=== PATIENT | male | born 1970 | race Caucasian/White ===

== ENCOUNTER 2023-06-15 04:53 | Emergency (ER) | payer BC, SELFPAY ==
[2023-06-15 04:55] VITALS: BP 140/94; PULSE 97; RESP 20; TEMP 36.9; O2SAT 94; BMI 37.4
--- NOTE | 2023-06-15 05:32 | PC.NURSE ---
in room talking with patient.
--- NOTE | 2023-06-15 05:38 | CT_ITS ---
PROCEDURE INFORMATION: Exam: CT Maxillofacial With Contrast Exam date and time: 06/15/2023 6:25 AM Age: 53 years old Clinical indication: Maxilla pain; Additional info: Maxillary denture pain into sinus w gum fluctuance TECHNIQUE: Imaging protocol: Computed tomography of the face with contrast. Radiation optimization: All CT scans at this facility use at least one of these dose optimization techniques: automated exposure control; mA and/or kV adjustment per patient size (includes targeted exams where dose is matched to clinical indication); or iterative reconstruction. Contrast material: ISOVUE; Contrast volume: 100 ml; Contrast route: IV; REPORTING DATA: Count of CT and Cardiac NM exams in prior 12 months: This patient has received 0 known CTs and 0 known cardiac nuclear medicine studies in the 12 months prior to the current study. COMPARISON: No relevant prior studies available. FINDINGS: Orbital cavities: Orbits are normal. Globes are unremarkable. Bones/joints: There is no evidence for acute facial fracture. The patient is edentulous. There is a 10 x 14 x 9 mm cystic or erosive structure in the midline maxilla anteriorly at the level of the foramen cecum which is indeterminate. Paranasal sinuses: Normal. No air-fluid levels. Soft tissues: Unremarkable. IMPRESSION: Cystic or erosive structure in the anterior maxilla. There is otherwise no drainable fluid collection.
--- NOTE | 2023-06-15 05:45 | HMH.EDGENADL ---
Discharge Plan Disposition Patient Disposition: Home, Self-Care Condition: Good Prescriptions Prescriptions: New oxycodone 5 mg tablet 5 mg PO Q6H PRN (Reason: severe pain (scale score 7-10)) Qty: 10 0RF amoxicillin-pot clavulanate 875-125 mg tablet 1 tab PO BID Qty: 14 0RF Referrals Follow up/Referrals: Prabhakar Peña [Primary Care Provider] - See instructions Activity Restrictions/Add. Instructions Additional Instructions/Restrictions: You were evaluated in the emergency department today for dental pain. I did not identify any obvious drainable abscess, however I am concerned for possible infection. You are being prescribed Augmentin as well as oxycodone as needed for severe pain. Only take the oxycodone if Tylenol and ibuprofen are not controlling your pain. Please call your dentist to be evaluated for denture refitting. Also follow-up with your primary care physician in 2 to 3 days for reevaluation. Return to the emergency department with new or worsening symptoms. Clinical Impressions Clinical Impression: Pain, dental Discharge ED Provider: Alfa Cunningham General Adult HPI General Chief complaint: Dental/Oral Stated complaint: Roof of mouth swollen Time Seen by Provider: 06/15/23 05:32 Mode of Arrival: Ambulatory Source of Information: Patient Limitations: No Limitations Description of Symptoms (Recalled from ER Triage Doc. by RN): Pt presents with oral pain that started 3 days ago. Pt has dentures he has had for 1 yr and unable to tolorate them on his gums. Pt rates pain 10/10. Unable to eat due to pain. Upper pallette is red and swollen as well as gum line. History of Present Illness HPI narrative: This 53-year-old male presents to the emergency department with concerns of oral pain. Patient states he has had dentures for more than a year and has never had issues with them until the last 3 days. He has significant pain where his 2 upper front teeth would normally be with redness and tenderness. He states this pain is now radiating up behind his nose and into his sinuses. He is also having right ear pain. Patient states he has had episodes of feeling hot and chilled. Pain was so significant that he came home from work with it. He has been unable to tolerate oral intake secondary to pain. Patient has had occasional nausea with one episode of emesis today. Related Data Previous Rx's Medication Instructions Recorded amoxicillin 875 mg-potassium 1 tab PO BID #14 tabs 06/15/23 clavulanate 125 mg tablet oxycodone 5 mg tablet 5 mg PO Q6H PRN severe pain (scale 06/15/23 score 7-10) #10 tabs Allergies Allergy/AdvReac Type Severity Reaction Status Date / Time No Known Allergies Allergy Verified 06/15/23 05:44 [facility] Disclaimer: The information contained in this section may have been updated after the patient was seen, as this information can be updated by other users. Social History Smoking Status: Never smoker alcohol intake: never current occupational status: employed Travel in the last 8 weeks: None ROS Obtained: Yes All systems reviewed & no additional complaints except as documented Constitutional Constitutional: Reports chills, Reports fever(s), Denies headache(s) and Denies weakness Eyes Eyes: Denies change in vision ENT Ears, Nose, Mouth, and Throat: Reports dental pain, Denies dizziness, Reports facial pain, Denies headache(s), Denies nasal congestion and Denies sore throat Cardiovascular Cardiovascular: Denies chest pain, Denies dyspnea and Denies leg edema Respiratory Respiratory: Denies cough and Denies dyspnea Gastrointestinal Gastrointestingal: Reports nausea and vomiting; Denies constipation or diarrhea Genitourinary Male Genitourinary: Denies difficulty urinating Musculoskeletal Musculoskeletal: Denies arthralgias, Denies myalgias, Denies numbness and Denies tingling Integumentary/Breasts Skin/Breast: Denies change in pigmentation Neurologic Neurol
[2023-06-15 06:00] LABS: Basophils % 0.3 % (0.1-2.0); Eosinophils # 0.1 K/mm3 (0.0-0.4); Eosinophils % 0.8 % (0.1-12.0); Hematocrit 47.6 % (42.0-52.0); Hemoglobin 15.3 g/dL (14.1-18.0); Lymphocytes % 11.4 % (10-50); Mean Corpuscular HGB Conc 32.3 g/dL (31.8-35.4); Mean Corpuscular Hemoglobin 30.1 pg (27.0-31.2); Mean Corpuscular Volume 93.3 fl (80-94); Mean Platelet Volume 7.8 fl (7.4-10.4); Monocytes # 0.6 K/mm3 (0.1-1.0); Monocytes % 6.3 % (1.7-9.3); Neutrophils # 7.1 K/mm3 (1.8-7.8); Neutrophils % 81.3 % (37.0-80.0); Platelet Count 255 K/mm3 (142-424); Red Cell Distribution Width 13.6 % (11.5-17.5); White Blood Count 8.8 K/mm3 (4.8-10.8)
[2023-06-15 06:01] VITALS: BP 107/75; PULSE 74; O2SAT 95
[2023-06-15 06:08] LABS: Alanine Aminotransferase 41 U/L (12-78); Albumin/Globulin Ratio 1.6 (1.1-1.8); Alkaline Phosphatase 82 U/L (38-126); Anion Gap 15.7 mEq/L (5-15); Aspartate Amino Transferase 36 U/L (17-59); Bilirubin,Total 0.7 mg/dl (0.2-1.3); Blood Urea Nitrogen 13 mg/dl (9-20); Calcium 9.6 mg/dl (8.4-10.2); Carbon Dioxide 28 mmol/L (22.0-30.0); Chloride 97 mmol/L (98-107); Creatinine Clearance Estimated 157 mL/min (50-200); Estimated Glomerular Filt Rate 101 ml/min (>60); GFR (African American) 122 ML/MIN (>60); Globulin 3.2 g/dL (1.3-3.2); Glucose 163 mg/dl (74-100); Potassium 3.7 mmoL/L (3.5-5.1); Sodium 137 mmol/L (136-145); Total Protein,Serum 8.2 g/dl (6.3-8.2)
[2023-06-15 06:30] VITALS: BP 141/79; PULSE 82; O2SAT 95
[2023-06-15 07:00] VITALS: BP 130/77; PULSE 78; O2SAT 95
--- NOTE | 2023-06-15 07:36 | PC.NURSE ---
notified ER MD Salvador CT is resulted
--- NOTE | 2023-06-15 07:48 | PC.NURSE ---
contacted rad for disc for pt.
[2023-06-15 08:11] VITALS: BP 105/70; PULSE 95; RESP 16; TEMP 36.9; O2SAT 100
== END 2023-06-15 08:11 | disposition home or self-care (01) ==
PROVIDERS: Emergency Medicine; Emergency Provider Emergency Medicine; PCP Family Medicine
DX: G50.1 Atypical facial pain (principal); R22.0 Localized swelling, mass and lump, head; R11.2 Nausea with vomiting, unspecified
CPT/HCPCS: 70487; 80053; 85025; 96374; 99285; J2405; Q9967